=== PATIENT | female | born 1965 | race Caucasian/White ===

== ENCOUNTER 2017-10-29 08:21 | Day surgery (SDC) | payer OTHER ==
[~2017-10-29 08:21] MED LIST: GABAPENTIN300 MG/6 M PO; HYZAAR 50-12.1 UDTAB PO; PAMELOR25 MG PO
== END 2017-10-29 18:15 | disposition home or self-care (01) ==
LOC: CIR.AMB 08:21
DX: N87.1 Moderate cervical dysplasia (principal); N72 Inflammatory disease of cervix uteri

== ENCOUNTER 2018-08-16 07:28 | Outpatient (CLI) | payer OTHER | END 2018-08-16 07:31 | disposition home or self-care (01) | LOC: SONOGRAMA 07:28 | DX: E04.1 Nontoxic single thyroid nodule (principal) ==